=== PATIENT | female | born 1985 | race American Indian/Alaskan Native ===

== ENCOUNTER 2016-12-10 21:02 | Inpatient (IN) | payer MEDICAID, OTHER ==
[2016-12-10] MEDS ORDERED: ATIVAN ONE (21:19)
[2016-12-10] MEDS ORDERED: ATIVAN IV ONE (21:42)
[2016-12-10] MEDS ORDERED: KEPPRA 1,000 MG/NS 0.75% 100ML 1,000 MG/100 ML BAG IV ONE (21:42)
[2016-12-10 22:01] LABS: Basophils % (Auto) 0.3 % (0.0-1.8); Eosinophils % (Auto) 2.1 % (0.0-4.3); Hematocrit 34.1 % (30.3-42.9); Hemoglobin 11.3 gm/dl (10.1-14.3); Mean Corpuscular HGB Conc 33 % (30-34); Mean Corpuscular Hemoglobin 31 pg (28-32); Mean Corpuscular Volume 93 fl (79-97); Platelet Count 207 K/mm3 (140-440); Red Blood Count 3.69 M/mm3 (3.65-5.03); Red Cell Distribution Width 13.7 % (13.2-15.2); White Blood Count 4.1 K/mm3 (4.5-11.0)
[2016-12-10 22:05] LABS: Urine Drugs of Abuse Note Disclamer
--- NOTE | 2016-12-10 22:41 | Emergency Department Report ---
HPI - General Chief Complaint: Seizure Time Seen by Provider: 12/10/16 21:28 - HPI HPI: Room 25 The patient is a 31-year-old female presenting with a chief complaint of seizures. Patient had her first seizure of life 7 days ago. The patient went to [facility] ED where she had a CAT scan of the head and labs performed both which were negative. Patient was started on Keppra and states she's been compliant since. However the following day the patient continued to have seizures subsequently went to [place] ED where she was seen and released. Family states the patient is a seizure daily for the past 7 days, having approximately 4-5 episodes daily. Family reports patient had 5 seizures today the most recent lasted approximately 15 minutes and this prompted them to bring her to the ED. Patient currently denies complaints except for headache. 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, cor triatriatum dextrum) - Family History Family history: no significant - Social History Smoking Status: Never Smoker Substance Use Type: None - Medications Home Medications: Home Medications Medication Instructions Recorded Confirmed Last Taken Type Gabapentin [Neurontin] 300 mg PO QID 03/17/16 03/17/16 Unknown History Loratadine [Claritin] 10 mg PO DAILY 03/17/16 03/17/16 Unknown History Nortriptyline HCl 25 mg PO HS 03/17/16 03/17/16 Unknown History Pantoprazole [Protonix] 40 mg PO BID 03/17/16 03/17/16 Unknown History Cyclobenzaprine [Flexeril 10 MG 1 tab PO TID PRN #20 tablet 05/22/16 Unknown Rx TAB] HYDROcodone/APAP 5-325 [[place] 1 each PO Q6HR PRN #20 tablet 05/22/16 Unknown Rx 5/325] Sulfamethoxazole/Trimethoprim 1 each PO BID #20 tablet 05/22/16 Unknown Rx [Bactrim DS TAB] ED Review of Systems ROS: Stated complaint: SEIZURE Other details as noted in HPI Comment: All other systems reviewed and negative Constitutional: denies: chills, fever Eyes: denies: eye pain, eye discharge, vision change ENT: denies: ear pain, throat pain Respiratory: denies: cough, shortness of breath, wheezing Cardiovascular: denies: chest pain, palpitations Endocrine: no symptoms reported Gastrointestinal: denies: abdominal pain, nausea, diarrhea Genitourinary: denies: urgency, dysuria, discharge Musculoskeletal: denies: back pain, joint swelling, arthralgia Skin: denies: rash, lesions Neurological: other (seizure) Psychiatric: denies: anxiety, depression Hematological/Lymphatic: denies: easy bleeding, easy bruising Physical Exam - Physical Exam Vital Signs: Vital Signs 12/10/16 12/10/16 12/10/16 21:16 21:20 21:30 Temperature Pulse Rate 82 Respiratory 21 Rate Blood Pressure 98/64 106/67 Blood Pressure [Right] O2 Sat by Pulse 100 100 100 Oximetry 12/10/16 21:46 Temperature 98.5 F Pulse Rate 88 Respiratory 14 Rate Blood Pressure Blood Pressure 119/70 [Right] O2 Sat by Pulse 100 Oximetry Physical Exam: GENERAL: The patient is well-developed well-nourished []. [] HEENT: Normocephalic. Atraumatic. Extraocular motions are intact. Patient has moist mucous membranes. NECK: Supple. Trachea midline CHEST/LUNGS: Clear to auscultation. There is no respiratory distress noted. HEART/CARDIOVASCULAR: Regular. There is no tachycardia. There is no gallop rub or murmur. ABDOMEN: Abdomen is soft, nontender. Patient has normal bowel sounds. There is no abdominal distention. SKIN: There is no rash. There is no edema. There is no diaphoresis. NEURO: The patient is awake, alert, and oriented. The patient is cooperative. The patient has no focal neurologic deficits. The patient has normal speech. Cranial nerves II through XII grossly intact, no drift MUSCULOSKELETAL: There is no evidence of acute injury. ED Course Vital Signs 12/10/16 12/10/16 12/10/16 21:16 21:20 21:30 Temperature Pulse Rate 82 Respiratory 21 Rate Blood Pressure 98/64 106/67 Blood Pressure [Right] O2 Sat by Pulse 100 100 100 Oximetry 12/10/16 21:46 Temperature 98.5 F Pulse Rate 88 Respiratory 14 Rate Blood Pressure Blood Pressure 119/70 [Right] O2 Sat by Pulse 100 Oximetry ED Medical Decision Making - Lab Data Result diagrams: 12/10/16 21:44 12/10/16 21:44 Laboratory Tests 12/10/16 12/10/16 12/10/16 21:44 21:44 21:44 WBC 4.1 L RBC 3.69 Hgb 11.3 Hct 34.1 MCV 93 MCH 31 MCHC 33 RDW 13.7 Plt Count 207 Lymph % (Auto) 47.6 H [place] % (Auto) 9.3 H Eos % (Auto) 2.1 Baso % (Auto) 0.3 Lymph # 1.9 [place] # 0.4 Eos # 0.1 Baso # 0.0 Seg Neutrophils % 40.7 Seg Neutrophils # 1.7 L Sodium 143 Potassium 3.8 Chloride 109.5 H Carbon Dioxide 20 L Anion Gap 17 BUN 10 Creatinine 0.9 Estimated GFR > 60 BUN/Creatinine Ratio 11.11 Glucose 97 Calcium 8.9 Magnesium 2.00 Total Creatine Kinase 52 CK-MB (CK-2) < 1.0 CK-MB (CK-2) Rel Index 1.9 Troponin T < 0.010 TSH Free T4 Urine HCG, Qual Urine Opiates Screen Urine Methadone Screen Ur Barbiturates Screen Ur Phencyclidine Scrn Ur Amphetamines Screen U Benzodiazepines Scrn Urine Cocaine Screen U Marijuana (THC) Screen Drugs of Abuse Note 12/10/16 12/10/16 12/10/16 21:44 22:00 22:00 WBC RBC Hgb Hct MCV MCH MCHC RDW Plt Count Lymph % (Auto) [place] % (Auto) Eos % (Auto) Baso % (Auto) Lymph # [place] # Eos # Baso # Seg Neutrophils % Seg Neutrophils # Sodium Potassium Chloride Carbon Dioxide Anion Gap BUN Creatinine Estimated GFR BUN/Creatinine Ratio Glucose Calcium Magnesium Total Creatine Kinase CK-MB (CK-2) CK-MB (CK-2) Rel Index Troponin T TSH 3.890 Free T4 0.93 Urine HCG, Qual Negative Urine Opiates Screen Presumptive negative Urine Methadone Screen Presumptive negative Ur Barbiturates Screen Presumptive negative Ur Phencyclidine Scrn Presumptive negative Ur Amphetamines Screen Presumptive negative U Benzodiazepines Scrn Presumptive negative Urine Cocaine Screen Presumptive negative U Marijuana (THC) Screen Presumptive negative Drugs of Abuse Note Disclamer - Differential Diagnosis seizures Critical care attestation.: If time is entered above; I have spent that time in minutes in the direct care of this critically ill patient, excluding procedure time. ED Disposition Clinical Impression: Uncontrolled seizures Disposition: OP ADMIT IP TO THIS HOSP Is pt being admited?: Yes Does the pt Need Aspirin: Yes Condition: Fair Time of Disposition: 23:42 (hospitalist paged)
[2016-12-10 23:19] LABS: Creatine Kinase MB < 1.0 ng/mL (0.0-4.0)
[2016-12-10 23:22] LABS: Anion Gap 17 mmol/L; BUN/Creatinine Ratio 11.11; Blood Urea Nitrogen 10 mg/dL (7-17); Calcium 8.9 mg/dL (8.4-10.2); Carbon Dioxide 20 mmol/L (22-30); Chloride 109.5 mmol/L (98-107); Creatine Kinase 52 units/L (30-135); Glucose 97 mg/dL (65-100); Potassium 3.8 mmol/L (3.6-5.0); Sodium 143 mmol/L (137-145)
[2016-12-11] MEDS ORDERED: ZOFRAN IV PRN (00:56)
[2016-12-11] MEDS ORDERED: TYLENOL PR PRN (00:56)
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
[2016-12-11] MEDS: ATIVAN IV PRN ×3 (03:41→21:08)
[2016-12-11] MEDS: NACL 0.45% 1000 ML 1,000 ML IV SCH ×2 (04:19→22:28)
[2016-12-11] MEDS: LOVENOX SUB-Q SCH (09:51)
--- NOTE | 2016-12-11 11:25 | Event Note ---
Date: 12/11/16 Patient was admitted this morning for status epilepticus. Patient is on IV Keppra thousand milligrams IV twice a day. Patient is also on Ativan when necessary for breakthrough seizures. Patient had one episode of seizure this morning. Patient was drowsy but she is able to communicate. She has a recent admission to [facility] for seizures and shows discharge his medications. Neurology consult is placed.
[2016-12-11] MEDS: KEPPRA 1,000 MG in D5W 100 ML IV SCH ×2 (14:08→21:39)
[2016-12-11] MEDS: TYLENOL PO PRN (14:22)
[2016-12-11] MEDS: PROTONIX PO SCH ×2 (14:23→21:46)
[2016-12-11] MEDS: NEURONTIN PO SCH ×4 (14:23→21:45)
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
--- NOTE | 2016-12-12 01:57 | Admit Criteria Form ---
Admission Criteria Documentation: SEIZURE Clinical Indications for Admission to Inpatient Care (Place 'X' for any and all applicable criteria): Admission is indicated for seizure and ANY ONE of the following(1)(2)(3)(4)(5): [ ]I. Inpatient admission required rather than observation care (Also use Seizure: Observation Care Criteria as appropriate) because of ANY ONE of the following: [ ]a) Altered mental status that is severe or persistent [ ]b) New focal neurologic deficit that is severe or persistent [ ]c) Metabolic disorder (eg, hypoglycemia, hyponatremia) that is severe or persistent [ ]d) Recurrent seizure [ ]e) Outpatient antiseizure regimen cannot be established (eg , patient cannot tolerate medication, initiation requires inpatient care) [ ]f) Need for ongoing intravenous infusion of antiseizure medication [ ]g) Cardiac arrhythmias of immediate concern [ ]h) Cerebral bleeding, hydrocephalus, or vasospasm monitoring (14) [ ]i) Increased intracranial pressure or cerebral edema monitoring (15) [ ]j) Other treatment or monitoring requiring inpatient admission [X ]II. Status epilepticus [A] or repetitive seizures not controlled with emergent treatment (6)(8) [ ]III. Brain disorder (eg, tumor, edema, and hydrocephalus) that requiring monitoring or intervention available only at inpatient level of care. [ ]IV. Brain insult (eg, severe trauma, stroke, drug toxicity, or withdrawal) that requires monitoring or intervention available only at inpatient level of care (10)(11) Extended stay beyond goal length of stay may be needed for (22) [ ]a) Complications of status epilepticus [ ]b) Refractory status epilepticus [ ]c) Etiology-specific therapy for conditions such as RECEPTION AGENT infection, head injury,eclampsia, severe metabolic abnormalities, and brain tumor [ ]d) Residual neurologic damage, [ ]e) Initiation of significant change to anticonvulsant treatment [ ]f) Older patients (65 years or older) [ ]g) Patient requiring intubation (eg, to protect airway) The original [employer] content created by [employer] has been revised. The portions of the content which have been revised are identified through the use of italic text or in bold, and [facility] has neither reviewed nor approved the modified material. All other unmodified content is copyright [facility]. Please see references footnoted in the original [facility] edition 2016 Admission Criteria Met: Yes
[2016-12-12 08:09] LABS: Basophils % (Auto) 0.4 % (0.0-1.8); Eosinophils % (Auto) 1.3 % (0.0-4.3); Hematocrit 31.2 % (30.3-42.9); Hemoglobin 10.4 gm/dl (10.1-14.3); Mean Corpuscular HGB Conc 33 % (30-34); Mean Corpuscular Hemoglobin 31 pg (28-32); Mean Corpuscular Volume 92 fl (79-97); Platelet Count 186 K/mm3 (140-440); Red Blood Count 3.38 M/mm3 (3.65-5.03); Red Cell Distribution Width 13.7 % (13.2-15.2); White Blood Count 3.7 K/mm3 (4.5-11.0)
[2016-12-12 08:13] LABS: Anion Gap 18 mmol/L; Blood Urea Nitrogen 6 mg/dL (7-17); Calcium 8.6 mg/dL (8.4-10.2); Carbon Dioxide 16 mmol/L (22-30); Chloride 109.7 mmol/L (98-107); Glucose 84 mg/dL (65-100); Potassium 3.5 mmol/L (3.6-5.0); Sodium 140 mmol/L (137-145)
[2016-12-12] MEDS: LOVENOX SUB-Q SCH (10:43)
[2016-12-12] MEDS: NEURONTIN PO SCH ×4 (10:44→22:40)
[2016-12-12] MEDS: PROTONIX PO SCH ×2 (10:44→22:40)
[2016-12-12] MEDS: KEPPRA 1,000 MG in D5W 100 ML IV SCH (12:07)
--- NOTE | 2016-12-12 13:36 | Progress Note ---
Assessment and Plan Assessment and plan: Status epilepticus - Patient is on Keppra and Ativan for breakthrough seizure - Gabapentin - Had one episode of seizure last night - Neurology consulted and recommended EEG, no recommendation about medication DVT prophylaxis - Lovenox Disposition - We will be discharge after EEG done and interpreted. History Interval history: Patient was seen and evaluated morning, patient said she had episode of seizure last night. Patient was seen by neurologist recommended EEG. Hospitalist Physical - Physical exam Narrative exam: Not in cardiopulmonary distress. The patient appeared well nourished and normally developed. Vital signs as documented. Head exam is unremarkable. No scleral icterus . Neck is without jugular venous distension, thyromegaly, or carotid bruits. Lungs are clear to auscultation. Cardiac exam reveals regular rate and Rhythm. First and second heart sounds normal. No murmurs, rubs or gallops. Abdominal exam reveals normal bowel sounds, no masses, no organomegaly and no aortic enlargement. Extremities are nonedematous and both femoral and pedal pulses are normal. PHOTOLITHOGRAPHER: Alert and oriented 3. No focal weakness. - Constitutional Vitals: Temp Pulse Resp BP Pulse Ox 98.1 F 60 16 94/52 98 12/12/16 08:00 12/12/16 08:00 12/12/16 08:00 12/12/16 08:00 12/12/16 08:00 Results - Labs CBC & Chem 7: 12/12/16 07:31 12/12/16 07:31 Labs: Laboratory Last Values WBC 3.7 K/mm3 (4.5-11.0) L 12/12/16 07:31 RBC 3.38 M/mm3 (3.65-5.03) L 12/12/16 07:31 Hgb 10.4 gm/dl (10.1-14.3) 12/12/16 07:31 Hct 31.2 % (30.3-42.9) 12/12/16 07:31 MCV 92 fl (79-97) 12/12/16 07:31 MCH 31 pg (28-32) 12/12/16 07:31 MCHC 33 % (30-34) 12/12/16 07:31 RDW 13.7 % (13.2-15.2) 12/12/16 07:31 Plt Count 186 K/mm3 (140-440) 12/12/16 07:31 Lymph % (Auto) 35.9 % (13.4-35.0) H 12/12/16 07:31 [place] % (Auto) 8.1 % (0.0-7.3) H 12/12/16 07:31 Eos % (Auto) 1.3 % (0.0-4.3) 12/12/16 07:31 Baso % (Auto) 0.4 % (0.0-1.8) 12/12/16 07:31 Lymph # 1.3 K/mm3 (1.2-5.4) 12/12/16 07:31 [place] # 0.3 K/mm3 (0.0-0.8) 12/12/16 07:31 Eos # 0.0 K/mm3 (0.0-0.4) 12/12/16 07:31 Baso # 0.0 K/mm3 (0.0-0.1) 12/12/16 07:31 Seg Neutrophils % 54.3 % (40.0-70.0) 12/12/16 07:31 Seg Neutrophils # 2.0 K/mm3 (1.8-7.7) 12/12/16 07:31 Sodium 140 mmol/L (137-145) 12/12/16 07:31 Potassium 3.5 mmol/L (3.6-5.0) L 12/12/16 07:31 Chloride 109.7 mmol/L (98-107) H 12/12/16 07:31 Carbon Dioxide 16 mmol/L (22-30) L 12/12/16 07:31 Anion Gap 18 mmol/L 12/12/16 07:31 BUN 6 mg/dL (7-17) L 12/12/16 07:31 Creatinine 0.8 mg/dL (0.7-1.2) 12/12/16 07:31 Estimated GFR > 60 ml/min 12/12/16 07:31 BUN/Creatinine Ratio 7.50 % 12/12/16 07:31 Glucose 84 mg/dL (65-100) 12/12/16 07:31 Calcium 8.6 mg/dL (8.4-10.2) 12/12/16 07:31 Magnesium 2.00 mg/dL (1.7-2.3) 12/10/16 21:44 Total Creatine Kinase 52 units/L (30-135) 12/10/16 21:44 CK-MB (CK-2) < 1.0 ng/mL (0.0-4.0) 12/10/16 21:44 CK-MB (CK-2) Rel Index 1.9 (0-4) 12/10/16 21:44 Troponin T < 0.010 ng/mL (0.00-0.029) 12/10/16 21:44 TSH 3.890 mlU/mL (0.270-4.200) 12/10/16 21:44 Free T4 0.93 ng/dL (0.76-1.46) 12/10/16 21:44 Urine HCG, Qual Negative (Negative) 12/10/16 22:00 Urine Opiates Screen Presumptive negative 12/10/16 22:00 Urine Methadone Screen Presumptive negative 12/10/16 22:00 Ur Barbiturates Screen Presumptive negative 12/10/16 22:00 Ur Phencyclidine Scrn Presumptive negative 12/10/16 22:00 Ur Amphetamines Screen Presumptive negative 12/10/16 22:00 U Benzodiazepines Scrn Presumptive negative 12/10/16 22:00 Urine Cocaine Screen Presumptive negative 12/10/16 22:00 U Marijuana (THC) Screen Presumptive negative 12/10/16 22:00 Drugs of Abuse Note Disclamer 12/10/16 22:00
[2016-12-12] MEDS: NACL 0.45% 1000 ML 1,000 ML IV SCH (13:59)
[2016-12-12] MEDS: KEPPRA PO SCH ×2 (15:39→22:40)
[2016-12-12] MEDS: ATIVAN IV PRN (19:49)
[2016-12-13 05:14] LABS: Anion Gap 14 mmol/L; BUN/Creatinine Ratio 5.71; Blood Urea Nitrogen 4 mg/dL (7-17); Calcium 6.4 mg/dL (8.4-10.2); Carbon Dioxide 15 mmol/L (22-30); Chloride 101.7 mmol/L (98-107); Glucose 70 mg/dL (65-100)
[2016-12-13 05:39] LABS: Sodium 128 mmol/L (137-145)
[2016-12-13] MEDS: TYLENOL PO PRN (05:41)
[2016-12-13] MEDS: NACL 0.45% 1000 ML 1,000 ML IV SCH ×2 (05:41→22:30)
[2016-12-13] MEDS: ATIVAN IV PRN ×3 (09:32→21:05)
[2016-12-13] MEDS: LOVENOX SUB-Q SCH (09:38)
[2016-12-13] MEDS ORDERED: LaMICtal PO SCH (10:00)
[2016-12-13] MEDS: TOPAMAX PO SCH ×2 (10:09→22:24)
[2016-12-13] MEDS: NEURONTIN PO SCH ×4 (10:09→22:24)
[2016-12-13] MEDS: KEPPRA PO SCH ×2 (10:10→22:22)
[2016-12-13] MEDS: PROTONIX PO SCH ×2 (10:10→22:25)
[2016-12-13] MEDS: NACL 0.9% 1000 ML 1,000 ML IV SCH (10:13)
[2016-12-13] MEDS ORDERED: K-DUR PO ONE (14:04)
--- NOTE | 2016-12-13 14:06 | Progress Note ---
Assessment and Plan Assessment and plan: Status epilepticus - Patient is on Gabapentin, Keppra, lamictal and Ativan for breakthrough seizure - Had one episode of seizure this morning - Neurology consulted and recommended EEG, no recommendation about medication Migraine - continue topiramate DVT prophylaxis - Lovenox Disposition - We will be discharge after EEG done and interpreted and neurology put a recommendation about discharge medication plan. History Interval history: Patient was seen and evaluated morning, patient said she had episode of seizure this morning. Patient was seen by neurologist recommended EEG. Hospitalist Physical - Physical exam Narrative exam: Not in cardiopulmonary distress. The patient appeared well nourished and normally developed. Vital signs as documented. Head exam is unremarkable. No scleral icterus . Neck is without jugular venous distension, thyromegaly, or carotid bruits. Lungs are clear to auscultation. Cardiac exam reveals regular rate and Rhythm. First and second heart sounds normal. No murmurs, rubs or gallops. Abdominal exam reveals normal bowel sounds, no masses, no organomegaly and no aortic enlargement. Extremities are nonedematous and both femoral and pedal pulses are normal. LIQUEFIER: Alert and oriented 3. No focal weakness. - Constitutional Vitals: Temp Pulse Resp BP Pulse Ox 98.2 F 68 16 96/52 98 12/13/16 08:03 12/13/16 08:03 12/13/16 08:03 12/13/16 08:03 12/13/16 08:03 Results - Labs CBC & Chem 7: 12/12/16 07:31 12/13/16 02:55 Labs: Laboratory Last Values WBC 3.7 K/mm3 (4.5-11.0) L 12/12/16 07:31 RBC 3.38 M/mm3 (3.65-5.03) L 12/12/16 07:31 Hgb 10.4 gm/dl (10.1-14.3) 12/12/16 07:31 Hct 31.2 % (30.3-42.9) 12/12/16 07:31 MCV 92 fl (79-97) 12/12/16 07:31 MCH 31 pg (28-32) 12/12/16 07:31 MCHC 33 % (30-34) 12/12/16 07:31 RDW 13.7 % (13.2-15.2) 12/12/16 07:31 Plt Count 186 K/mm3 (140-440) 12/12/16 07:31 Lymph % (Auto) 35.9 % (13.4-35.0) H 12/12/16 07:31 [place] % (Auto) 8.1 % (0.0-7.3) H 12/12/16 07:31 Eos % (Auto) 1.3 % (0.0-4.3) 12/12/16 07:31 Baso % (Auto) 0.4 % (0.0-1.8) 12/12/16 07:31 Lymph # 1.3 K/mm3 (1.2-5.4) 12/12/16 07:31 [place] # 0.3 K/mm3 (0.0-0.8) 12/12/16 07:31 Eos # 0.0 K/mm3 (0.0-0.4) 12/12/16 07:31 Baso # 0.0 K/mm3 (0.0-0.1) 12/12/16 07:31 Seg Neutrophils % 54.3 % (40.0-70.0) 12/12/16 07:31 Seg Neutrophils # 2.0 K/mm3 (1.8-7.7) 12/12/16 07:31 Sodium 128 mmol/L (137-145) L D 12/13/16 02:55 Potassium 3.0 mmol/L (3.6-5.0) L 12/13/16 02:55 Chloride 101.7 mmol/L (98-107) 12/13/16 02:55 Carbon Dioxide 15 mmol/L (22-30) L 12/13/16 02:55 Anion Gap 14 mmol/L 12/13/16 02:55 BUN 4 mg/dL (7-17) L 12/13/16 02:55 Creatinine 0.7 mg/dL (0.7-1.2) 12/13/16 02:55 Estimated GFR > 60 ml/min 12/13/16 02:55 BUN/Creatinine Ratio 5.71 % 12/13/16 02:55 Glucose 70 mg/dL (65-100) 12/13/16 02:55 Calcium 6.4 mg/dL (8.4-10.2) L D 12/13/16 02:55 Magnesium 2.00 mg/dL (1.7-2.3) 12/10/16 21:44 Total Creatine Kinase 52 units/L (30-135) 12/10/16 21:44 CK-MB (CK-2) < 1.0 ng/mL (0.0-4.0) 12/10/16 21:44 CK-MB (CK-2) Rel Index 1.9 (0-4) 12/10/16 21:44 Troponin T < 0.010 ng/mL (0.00-0.029) 12/10/16 21:44 TSH 3.890 mlU/mL (0.270-4.200) 12/10/16 21:44 Free T4 0.93 ng/dL (0.76-1.46) 12/10/16 21:44 Urine HCG, Qual Negative (Negative) 12/10/16 22:00 Urine Opiates Screen Presumptive negative 12/10/16 22:00 Urine Methadone Screen Presumptive negative 12/10/16 22:00 Ur Barbiturates Screen Presumptive negative 12/10/16 22:00 Ur Phencyclidine Scrn Presumptive negative 12/10/16 22:00 Ur Amphetamines Screen Presumptive negative 12/10/16 22:00 U Benzodiazepines Scrn Presumptive negative 12/10/16 22:00 Urine Cocaine Screen Presumptive negative 12/10/16 22:00 U Marijuana (THC) Screen Presumptive negative 12/10/16 22:00 Drugs of Abuse Note Disclamer 12/10/16 22:00
[2016-12-13] MEDS: LaMICtal PO SCH (22:23)
[2016-12-14 06:38] LABS: Anion Gap 16 mmol/L; BUN/Creatinine Ratio 4.28; Blood Urea Nitrogen 3 mg/dL (7-17); Carbon Dioxide 17 mmol/L (22-30); Chloride 111.8 mmol/L (98-107); Glucose 83 mg/dL (65-100); Sodium 141 mmol/L (137-145)
[2016-12-14] MEDS: NACL 0.9% 1000 ML 1,000 ML IV SCH ×2 (07:01→19:52)
[2016-12-14 07:46] LABS: Calcium 8.3 mg/dL (8.4-10.2)
[2016-12-14] MEDS: KEPPRA PO SCH ×2 (09:12→21:21)
[2016-12-14] MEDS: ATIVAN IV PRN ×3 (09:28→20:56)
[2016-12-14] MEDS: PROTONIX PO SCH ×2 (09:39→21:21)
[2016-12-14] MEDS: NEURONTIN PO SCH ×4 (09:39→21:21)
[2016-12-14] MEDS: TOPAMAX PO SCH ×2 (09:40→21:21)
[2016-12-14] MEDS: LaMICtal PO SCH ×2 (10:47→21:20)
[2016-12-14] MEDS: LOVENOX SUB-Q SCH (10:48)
--- NOTE | 2016-12-14 16:37 | Progress Note ---
Assessment and Plan Assessment and plan: Status epilepticus - Patient is on Gabapentin, Keppra, lamictal and Ativan for breakthrough seizure - Had one episode of seizure last night, didn't have seizure today - Neurology consulted and recommended EEG, and increased lamictal to 200mg Migraine - continue topiramate DVT prophylaxis - Lovenox Disposition - We will be discharge after EEG done and interpreted and neurology. History Interval history: Patient was seen and evaluated morning, patient said she had episode of seizure last night. Patient was seen by neurologist recommended EEG. Hospitalist Physical - Physical exam Narrative exam: Not in cardiopulmonary distress. The patient appeared well nourished and normally developed. Vital signs as documented. Head exam is unremarkable. No scleral icterus . Neck is without jugular venous distension, thyromegaly, or carotid bruits. Lungs are clear to auscultation. Cardiac exam reveals regular rate and Rhythm. First and second heart sounds normal. No murmurs, rubs or gallops. Abdominal exam reveals normal bowel sounds, no masses, no organomegaly and no aortic enlargement. Extremities are nonedematous and both femoral and pedal pulses are normal. 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 No focal weakness. - Constitutional Vitals: Temp Pulse Resp BP Pulse Ox 98.0 F 61 16 100/65 100 12/14/16 07:34 12/14/16 07:34 12/14/16 07:34 12/14/16 07:34 12/14/16 07:34 Results - Labs CBC & Chem 7: 12/12/16 07:31 12/14/16 05:26 Labs: Laboratory Last Values WBC 3.7 K/mm3 (4.5-11.0) L 12/12/16 07:31 RBC 3.38 M/mm3 (3.65-5.03) L 12/12/16 07:31 Hgb 10.4 gm/dl (10.1-14.3) 12/12/16 07:31 Hct 31.2 % (30.3-42.9) 12/12/16 07:31 MCV 92 fl (79-97) 12/12/16 07:31 MCH 31 pg (28-32) 12/12/16 07:31 MCHC 33 % (30-34) 12/12/16 07:31 RDW 13.7 % (13.2-15.2) 12/12/16 07:31 Plt Count 186 K/mm3 (140-440) 12/12/16 07:31 Lymph % (Auto) 35.9 % (13.4-35.0) H 12/12/16 07:31 Clinch % (Auto) 8.1 % (0.0-7.3) H 12/12/16 07:31 Eos % (Auto) 1.3 % (0.0-4.3) 12/12/16 07:31 Baso % (Auto) 0.4 % (0.0-1.8) 12/12/16 07:31 Lymph # 1.3 K/mm3 (1.2-5.4) 12/12/16 07:31 Clinch # 0.3 K/mm3 (0.0-0.8) 12/12/16 07:31 Eos # 0.0 K/mm3 (0.0-0.4) 12/12/16 07:31 Baso # 0.0 K/mm3 (0.0-0.1) 12/12/16 07:31 Seg Neutrophils % 54.3 % (40.0-70.0) 12/12/16 07:31 Seg Neutrophils # 2.0 K/mm3 (1.8-7.7) 12/12/16 07:31 Sodium 141 mmol/L (137-145) D 12/14/16 05:26 Potassium 4.0 mmol/L (3.6-5.0) D 12/14/16 05:26 Chloride 111.8 mmol/L (98-107) H 12/14/16 05:26 Carbon Dioxide 17 mmol/L (22-30) L 12/14/16 05:26 Anion Gap 16 mmol/L 12/14/16 05:26 BUN 3 mg/dL (7-17) L 12/14/16 05:26 Creatinine 0.7 mg/dL (0.7-1.2) 12/14/16 05:26 Estimated GFR > 60 ml/min 12/14/16 05:26 BUN/Creatinine Ratio 4.28 % 12/14/16 05:26 Glucose 83 mg/dL (65-100) 12/14/16 05:26 Calcium 8.3 mg/dL (8.4-10.2) L D 12/14/16 05:26 Magnesium 2.00 mg/dL (1.7-2.3) 12/10/16 21:44 Total Creatine Kinase 52 units/L (30-135) 12/10/16 21:44 CK-MB (CK-2) < 1.0 ng/mL (0.0-4.0) 12/10/16 21:44 CK-MB (CK-2) Rel Index 1.9 (0-4) 12/10/16 21:44 Troponin T < 0.010 ng/mL (0.00-0.029) 12/10/16 21:44 TSH 3.890 mlU/mL (0.270-4.200) 12/10/16 21:44 Free T4 0.93 ng/dL (0.76-1.46) 12/10/16 21:44 Urine HCG, Qual Negative (Negative) 12/10/16 22:00 Urine Opiates Screen Presumptive negative 12/10/16 22:00 Urine Methadone Screen Presumptive negative 12/10/16 22:00 Ur Barbiturates Screen Presumptive negative 12/10/16 22:00 Ur Phencyclidine Scrn Presumptive negative 12/10/16 22:00 Ur Amphetamines Screen Presumptive negative 12/10/16 22:00 U Benzodiazepines Scrn Presumptive negative 12/10/16 22:00 Urine Cocaine Screen Presumptive negative 12/10/16 22:00 U Marijuana (THC) Screen Presumptive negative 12/10/16 22:00 Drugs of Abuse Note Disclamer 12/10/16 22:00
[2016-12-14] MEDS: TYLENOL PO PRN (17:09)
[2016-12-15] MEDS: NACL 0.9% 1000 ML 1,000 ML IV SCH ×3 (04:00→21:17)
[2016-12-15 05:53] LABS: Basophils % (Auto) 0.3 % (0.0-1.8); Eosinophils % (Auto) 2.2 % (0.0-4.3); Hematocrit 28.2 % (30.3-42.9); Hemoglobin 9.4 gm/dl (10.1-14.3); Mean Corpuscular HGB Conc 33 % (30-34); Mean Corpuscular Hemoglobin 30 pg (28-32); Mean Corpuscular Volume 91 fl (79-97); Platelet Count 159 K/mm3 (140-440); Red Blood Count 3.11 M/mm3 (3.65-5.03); Red Cell Distribution Width 13.5 % (13.2-15.2); White Blood Count 3.4 K/mm3 (4.5-11.0)
[2016-12-15 06:08] LABS: Anion Gap 13 mmol/L; BUN/Creatinine Ratio 4.28; Blood Urea Nitrogen 3 mg/dL (7-17); Calcium 8.2 mg/dL (8.4-10.2); Carbon Dioxide 19 mmol/L (22-30); Chloride 111.9 mmol/L (98-107); Glucose 85 mg/dL (65-100); Potassium 3.5 mmol/L (3.6-5.0); Sodium 140 mmol/L (137-145)
[2016-12-15] MEDS: ATIVAN IV PRN ×3 (08:45→18:34)
[2016-12-15] MEDS: LOVENOX SUB-Q SCH (09:44)
[2016-12-15] MEDS: NEURONTIN PO SCH ×4 (09:45→21:21)
[2016-12-15] MEDS: TOPAMAX PO SCH ×2 (09:45→21:21)
[2016-12-15] MEDS: KEPPRA PO SCH ×2 (09:45→21:20)
[2016-12-15] MEDS: LaMICtal PO SCH ×2 (09:45→21:19)
[2016-12-15] MEDS: PROTONIX PO SCH ×2 (10:00→21:20)
[2016-12-15] MEDS ORDERED: ATIVAN IV STA (10:30)
--- NOTE | 2016-12-15 10:59 | Consultation ---
History of Present Illness - Reason for Consult Consult date: 12/15/16 seizure - History of Present Illness spoke to the hospitalist and the Keppra dose is adequate at 2000 m g / day and lamictal raised to 400 mg/ day and Neurontin 1200 mg / day in combo these meds should be very effective I would recommend transfer to epilepsy monitoring unit at [place] SHE IS FOLLOWED IN THE NEUROLOGY CLINIC HOSPITALIST IS HERE ON THE FLOOR AND THIS WAS ADVISED CLINICAL HANDOFF Medications and Allergies Allergies Allergy/AdvReac Type Severity Reaction Status Date / Time Iodinated Contrast Media - Allergy Nausea Verified 04/25/15 11:02 IV Dye magnesium Allergy Anaphylaxis Verified 04/25/15 11:03 Home Medications Medication Instructions Recorded Confirmed Last Taken Type Gabapentin [Neurontin] 300 mg PO QID 03/17/16 03/17/16 Unknown History Loratadine [Claritin] 10 mg PO DAILY 03/17/16 03/17/16 Unknown History Nortriptyline HCl 25 mg PO HS 03/17/16 03/17/16 Unknown History Pantoprazole [Protonix] 40 mg PO BID 03/17/16 03/17/16 Unknown History Cyclobenzaprine [Flexeril 10 MG 1 tab PO TID PRN #20 tablet 05/22/16 Unknown Rx TAB] HYDROcodone/APAP 5-325 [Johnson 1 each PO Q6HR PRN #20 tablet 05/22/16 Unknown Rx 5/325] Sulfamethoxazole/Trimethoprim 1 each PO BID #20 tablet 05/22/16 Unknown Rx [Bactrim DS TAB] Active Meds: Active Medications Acetaminophen (Tylenol) 650 mg PO Q4H PRN PRN Reason: Pain MILD(1-3)/Fever >100.5/VALLEJO Last Admin: 12/14/16 17:09 Dose: 650 mg Acetaminophen (Tylenol) 650 mg [place] Q4H PRN PRN Reason: Pain MILD(1-3)/Fever >100.5/VALLEJO Enoxaparin Sodium (Lovenox) 40 mg SUB-Q QDAY [facility] Last Admin: 12/15/16 09:44 Dose: 40 mg Gabapentin (Neurontin) 300 mg PO QID [facility] Last Admin: 12/15/16 09:45 Dose: 300 mg Sodium Chloride (Nacl 0.45% 1000 Ml) 1,000 mls @ 75 mls/hr IV DIRECT [facility] Last Admin: 12/13/16 22:30 Dose: 75 mls/hr Sodium Chloride (Nacl 0.9% 1000 Ml) 1,000 mls @ 125 mls/hr IV DIRECT [facility] Last Admin: 12/15/16 10:45 Dose: 125 mls/hr Lamotrigine (Lamictal) 200 mg PO BID [facility] Last Admin: 12/15/16 09:45 Dose: 200 mg Levetiracetam (Keppra) 1,000 mg PO BID [facility] Last Admin: 12/15/16 09:45 Dose: 1,000 mg Lorazepam (Ativan) 1 mg IV Q4H PRN PRN Reason: Seizures Last Admin: 12/15/16 08:45 Dose: 1 mg Ondansetron HCl (Zofran) 4 mg IV Q8H PRN PRN Reason: N/V unrelieved by Reglan Pantoprazole Sodium (Protonix) 40 mg PO BID [facility] Last Admin: 12/15/16 10:00 Dose: 40 mg Topiramate (Topamax) 50 mg PO Q12HR [facility] Last Admin: 12/15/16 09:45 Dose: 50 mg Exam - Constitutional Vitals: Temp Pulse Resp BP Pulse Ox 97.9 F 96 H 24 122/73 100 12/15/16 10:00 12/15/16 10:00 12/15/16 10:00 12/15/16 10:00 12/15/16 10:00 Results - Labs CBC & Chem 7: 12/15/16 05:07 12/15/16 05:07 Labs: Abnormal lab results 12/15/16 12/15/16 Range/Units 05:07 05:07 WBC 3.4 L (4.5-11.0) K/mm3 RBC 3.11 L (3.65-5.03) M/mm3 Hgb 9.4 L (10.1-14.3) gm/dl Hct 28.2 L (30.3-42.9) % Lymph % (Auto) 36.3 H (13.4-35.0) % [place] % (Auto) 8.8 H (0.0-7.3) % Potassium 3.5 L (3.6-5.0) mmol/L Chloride 111.9 H (98-107) mmol/L Carbon Dioxide 19 L (22-30) mmol/L BUN 3 L (7-17) mg/dL Calcium 8.2 L (8.4-10.2) mg/dL
--- NOTE | 2016-12-15 11:25 | Consultation ---
History of Present Illness - Reason for Consult Consult date: 12/15/16 eeg report - History of Present Illness I reviewed the EEG in it's entirity and I would call it normal Medications and Allergies Allergies Allergy/AdvReac Type Severity Reaction Status Date / Time Iodinated Contrast Media - Allergy Nausea Verified 04/25/15 11:02 IV Dye magnesium Allergy Anaphylaxis Verified 04/25/15 11:03 Home Medications Medication Instructions Recorded Confirmed Last Taken Type Gabapentin [Neurontin] 300 mg PO QID 03/17/16 03/17/16 Unknown History Loratadine [Claritin] 10 mg PO DAILY 03/17/16 03/17/16 Unknown History Nortriptyline HCl 25 mg PO HS 03/17/16 03/17/16 Unknown History Pantoprazole [Protonix] 40 mg PO BID 03/17/16 03/17/16 Unknown History Cyclobenzaprine [Flexeril 10 MG 1 tab PO TID PRN #20 tablet 05/22/16 Unknown Rx TAB] HYDROcodone/APAP 5-325 [Fowler 1 each PO Q6HR PRN #20 tablet 05/22/16 Unknown Rx 5/325] Sulfamethoxazole/Trimethoprim 1 each PO BID #20 tablet 05/22/16 Unknown Rx [Bactrim DS TAB] Active Meds: Active Medications Acetaminophen (Tylenol) 650 mg PO Q4H PRN PRN Reason: Pain MILD(1-3)/Fever >100.5/VALLEJO Last Admin: 12/14/16 17:09 Dose: 650 mg Acetaminophen (Tylenol) 650 mg [place] Q4H PRN PRN Reason: Pain MILD(1-3)/Fever >100.5/VALLEJO Enoxaparin Sodium (Lovenox) 40 mg SUB-Q QDAY [facility] Last Admin: 12/15/16 09:44 Dose: 40 mg Gabapentin (Neurontin) 300 mg PO QID [facility] Last Admin: 12/15/16 09:45 Dose: 300 mg Sodium Chloride (Nacl 0.45% 1000 Ml) 1,000 mls @ 75 mls/hr IV DIRECT [facility] Last Admin: 12/13/16 22:30 Dose: 75 mls/hr Sodium Chloride (Nacl 0.9% 1000 Ml) 1,000 mls @ 125 mls/hr IV DIRECT [facility] Last Admin: 12/15/16 10:45 Dose: 125 mls/hr Lamotrigine (Lamictal) 200 mg PO BID [facility] Last Admin: 12/15/16 09:45 Dose: 200 mg Levetiracetam (Keppra) 1,000 mg PO BID [facility] Last Admin: 12/15/16 09:45 Dose: 1,000 mg Lorazepam (Ativan) 1 mg IV Q4H PRN PRN Reason: Seizures Last Admin: 12/15/16 08:45 Dose: 1 mg Ondansetron HCl (Zofran) 4 mg IV Q8H PRN PRN Reason: N/V unrelieved by Reglan Pantoprazole Sodium (Protonix) 40 mg PO BID [facility] Last Admin: 12/15/16 10:00 Dose: 40 mg Topiramate (Topamax) 50 mg PO Q12HR [facility] Last Admin: 12/15/16 09:45 Dose: 50 mg Exam - Constitutional Vitals: Temp Pulse Resp BP Pulse Ox 97.9 F 96 H 24 122/73 100 12/15/16 10:00 12/15/16 10:00 12/15/16 10:00 12/15/16 10:00 12/15/16 10:00 Results - Labs CBC & Chem 7: 12/15/16 05:07 12/15/16 05:07 Labs: Abnormal lab results 12/15/16 12/15/16 Range/Units 05:07 05:07 WBC 3.4 L (4.5-11.0) K/mm3 RBC 3.11 L (3.65-5.03) M/mm3 Hgb 9.4 L (10.1-14.3) gm/dl Hct 28.2 L (30.3-42.9) % Lymph % (Auto) 36.3 H (13.4-35.0) % [place] % (Auto) 8.8 H (0.0-7.3) % Potassium 3.5 L (3.6-5.0) mmol/L Chloride 111.9 H (98-107) mmol/L Carbon Dioxide 19 L (22-30) mmol/L BUN 3 L (7-17) mg/dL Calcium 8.2 L (8.4-10.2) mg/dL
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
[2016-12-15] MEDS: TYLENOL PO PRN (14:52)
[2016-12-16] MEDS: NACL 0.9% 1000 ML 1,000 ML IV SCH ×2 (05:06→22:54)
--- NOTE | 2016-12-16 08:11 | Event Note ---
Date: 12/16/16 Assessment and Plan Assessment and plan: Status epilepticus Recurrent seizures - Patient is on Gabapentin, Keppra, lamictal and Ativan for breakthrough seizure - Had 2 episodes of seizures this morning - Neurology consulted and EEG was done and read as normal Migraine - continue topiramate DVT prophylaxis - Lovenox Disposition - Patient transferred to [place] to epilepsy monitoring Unit and waiting for bed. - Patient Problems (1) Migraine Current Visit: Yes Status: Acute Qualifiers: Migraine type: M Status migrainosus presence: S Intractability: I (2) Uncontrolled seizures Current Visit: Yes Status: Acute Qualifiers: Convulsion type: C History Interval history: Patient was seen and evaluated morning, patient said she had 2episode of seizure this morning. Patient was seen by neurologist recommended EEG read as normal. Hospitalist Physical - Physical exam Narrative exam: Not in cardiopulmonary distress. The patient appeared well nourished and normally developed. Vital signs as documented. Head exam is unremarkable. No scleral icterus . Neck is without jugular venous distension, thyromegaly, or carotid bruits. Lungs are clear to auscultation. Cardiac exam reveals regular rate and Rhythm. First and second heart sounds normal. No murmurs, rubs or gallops. Abdominal exam reveals normal bowel sounds, no masses, no organomegaly and no aortic enlargement. Extremities are nonedematous and both femoral and pedal pulses are normal. 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 No focal weakness. - Constitutional Vitals: Temp Pulse Resp BP Pulse Ox 98.5 F 63 20 90/50 93 12/15/16 23:30 12/15/16 23:30 12/15/16 23:30 12/15/16 23:30 12/15/16 23:30 Results - Labs CBC & Chem 7: 12/15/16 05:07 12/15/16 05:07 Labs: Laboratory Last Values WBC 3.4 K/mm3 (4.5-11.0) L 12/15/16 05:07 RBC 3.11 M/mm3 (3.65-5.03) L 12/15/16 05:07 Hgb 9.4 gm/dl (10.1-14.3) L 12/15/16 05:07 Hct 28.2 % (30.3-42.9) L 12/15/16 05:07 MCV 91 fl (79-97) 12/15/16 05:07 MCH 30 pg (28-32) 12/15/16 05:07 MCHC 33 % (30-34) 12/15/16 05:07 RDW 13.5 % (13.2-15.2) 12/15/16 05:07 Plt Count 159 K/mm3 (140-440) 12/15/16 05:07 Lymph % (Auto) 36.3 % (13.4-35.0) H 12/15/16 05:07 [place] % (Auto) 8.8 % (0.0-7.3) H 12/15/16 05:07 Eos % (Auto) 2.2 % (0.0-4.3) 12/15/16 05:07 Baso % (Auto) 0.3 % (0.0-1.8) 12/15/16 05:07 Lymph # 1.2 K/mm3 (1.2-5.4) 12/15/16 05:07 [place] # 0.3 K/mm3 (0.0-0.8) 12/15/16 05:07 Eos # 0.1 K/mm3 (0.0-0.4) 12/15/16 05:07 Baso # 0.0 K/mm3 (0.0-0.1) 12/15/16 05:07 Seg Neutrophils % 52.4 % (40.0-70.0) 12/15/16 05:07 Seg Neutrophils # 1.8 K/mm3 (1.8-7.7) 12/15/16 05:07 Sodium 140 mmol/L (137-145) 12/15/16 05:07 Potassium 3.5 mmol/L (3.6-5.0) L 12/15/16 05:07 Chloride 111.9 mmol/L (98-107) H 12/15/16 05:07 Carbon Dioxide 19 mmol/L (22-30) L 12/15/16 05:07 Anion Gap 13 mmol/L 12/15/16 05:07 BUN 3 mg/dL (7-17) L 12/15/16 05:07 Creatinine 0.7 mg/dL (0.7-1.2) 12/15/16 05:07 Estimated GFR > 60 ml/min 12/15/16 05:07 BUN/Creatinine Ratio 4.28 % 12/15/16 05:07 Glucose 85 mg/dL (65-100) 12/15/16 05:07 Lactic Acid 1.20 mmol/L (0.7-2.0) 12/15/16 13:45 Calcium 8.2 mg/dL (8.4-10.2) L 12/15/16 05:07 Magnesium 2.00 mg/dL (1.7-2.3) 12/10/16 21:44 Total Creatine Kinase 52 units/L (30-135) 12/10/16 21:44 CK-MB (CK-2) < 1.0 ng/mL (0.0-4.0) 12/10/16 21:44 CK-MB (CK-2) Rel Index 1.9 (0-4) 12/10/16 21:44 Troponin T < 0.010 ng/mL (0.00-0.029) 12/10/16 21:44 TSH 3.890 mlU/mL (0.270-4.200) 12/10/16 21:44 Free T4 0.93 ng/dL (0.76-1.46) 12/10/16 21:44 Urine HCG, Qual Negative (Negative) 12/10/16 22:00 Urine Opiates Screen Presumptive negative 12/10/16 22:00 Urine Methadone Screen Presumptive negative 12/10/16 22:00 Ur Barbiturates Screen Presumptive negative 12/10/16 22:00 Ur Phencyclidine Scrn Presumptive negative 12/10/16 22:00 Ur Amphetamines Screen Presumptive negative 12/10/16 22:00 U Benzodiazepines Scrn Presumptive negative 12/10/16 22:00 Urine Cocaine Screen Presumptive negative 12/10/16 22:00 U Marijuana (THC) Screen Presumptive negative 12/10/16 22:00 Drugs of Abuse Note Disclamer 12/10/16 22:00
[2016-12-16] MEDS: ATIVAN IV PRN ×3 (09:14→17:02)
[2016-12-16] MEDS: TOPAMAX PO SCH ×2 (09:15→21:50)
[2016-12-16] MEDS: LaMICtal PO SCH ×2 (09:15→21:51)
[2016-12-16] MEDS: PROTONIX PO SCH ×2 (09:16→21:53)
[2016-12-16] MEDS: KEPPRA PO SCH ×3 (09:16→21:49)
[2016-12-16] MEDS: LOVENOX SUB-Q SCH (09:19)
[2016-12-16] MEDS: NEURONTIN PO SCH ×4 (11:20→21:53)
[2016-12-17] MEDS: ATIVAN IV PRN (06:45)
[2016-12-17] MEDS: NACL 0.9% 1000 ML 1,000 ML IV SCH (07:21)
[2016-12-17 08:28] VITALS: BP 104/59
[2016-12-17] MEDS: TYLENOL PO PRN ×2 (08:44→13:45)
[2016-12-17] MEDS ORDERED: ATIVAN IV ONE (08:53)
[2016-12-17] MEDS: LOVENOX SUB-Q SCH (09:14)
[2016-12-17] MEDS: LaMICtal PO SCH (09:15)
[2016-12-17] MEDS: NEURONTIN PO SCH ×2 (09:15→13:45)
[2016-12-17] MEDS: KEPPRA PO SCH (09:15)
[2016-12-17] MEDS: PROTONIX PO SCH (09:15)
[2016-12-17] MEDS: TOPAMAX PO SCH (09:16)
--- NOTE | 2016-12-17 10:38 | Progress Note ---
Assessment and Plan Assessment and plan: Status epilepticus Recurrent seizures - Patient is on Gabapentin, Keppra, lamictal and Ativan for breakthrough seizure - Had 1 episode of seizures this morning - Neurology consulted and EEG was done and read as normal Migraine - continue topiramate DVT prophylaxis - Lovenox Disposition - Patient transferred to [place] to epilepsy monitoring Unit and waiting for bed. - Patient Problems (1) Migraine Current Visit: Yes Status: Acute Qualifiers: Migraine type: M Status migrainosus presence: S Intractability: I (2) Uncontrolled seizures Current Visit: Yes Status: Acute Qualifiers: Convulsion type: C History Interval history: Patient was seen and evaluated morning, patient said she had 1 episode of seizure this morning. Patient was seen by neurologist recommended EEG read as normal and transferred to [place] epilepsy monitoring unit & waiting to get bed. Hospitalist Physical - Physical exam Narrative exam: Not in cardiopulmonary distress. The patient appeared well nourished and normally developed. Vital signs as documented. Head exam is unremarkable. No scleral icterus . Neck is without jugular venous distension, thyromegaly, or carotid bruits. Lungs are clear to auscultation. Cardiac exam reveals regular rate and Rhythm. First and second heart sounds normal. No murmurs, rubs or gallops. Abdominal exam reveals normal bowel sounds, no masses, no organomegaly and no aortic enlargement. Extremities are nonedematous and both femoral and pedal pulses are normal. 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 - Constitutional Vitals: Temp Pulse Resp BP Pulse Ox 98.0 F 81 20 104/59 100 12/17/16 07:00 12/17/16 07:00 12/17/16 07:00 12/17/16 07:00 12/17/16 07:00 Results - Labs CBC & Chem 7: 12/15/16 05:07 12/15/16 05:07 Labs: Laboratory Last Values WBC 3.4 K/mm3 (4.5-11.0) L 12/15/16 05:07 RBC 3.11 M/mm3 (3.65-5.03) L 12/15/16 05:07 Hgb 9.4 gm/dl (10.1-14.3) L 12/15/16 05:07 Hct 28.2 % (30.3-42.9) L 12/15/16 05:07 MCV 91 fl (79-97) 12/15/16 05:07 MCH 30 pg (28-32) 12/15/16 05:07 MCHC 33 % (30-34) 12/15/16 05:07 RDW 13.5 % (13.2-15.2) 12/15/16 05:07 Plt Count 159 K/mm3 (140-440) 12/15/16 05:07 Lymph % (Auto) 36.3 % (13.4-35.0) H 12/15/16 05:07 [place] % (Auto) 8.8 % (0.0-7.3) H 12/15/16 05:07 Eos % (Auto) 2.2 % (0.0-4.3) 12/15/16 05:07 Baso % (Auto) 0.3 % (0.0-1.8) 12/15/16 05:07 Lymph # 1.2 K/mm3 (1.2-5.4) 12/15/16 05:07 [place] # 0.3 K/mm3 (0.0-0.8) 12/15/16 05:07 Eos # 0.1 K/mm3 (0.0-0.4) 12/15/16 05:07 Baso # 0.0 K/mm3 (0.0-0.1) 12/15/16 05:07 Seg Neutrophils % 52.4 % (40.0-70.0) 12/15/16 05:07 Seg Neutrophils # 1.8 K/mm3 (1.8-7.7) 12/15/16 05:07 Sodium 140 mmol/L (137-145) 12/15/16 05:07 Potassium 3.5 mmol/L (3.6-5.0) L 12/15/16 05:07 Chloride 111.9 mmol/L (98-107) H 12/15/16 05:07 Carbon Dioxide 19 mmol/L (22-30) L 12/15/16 05:07 Anion Gap 13 mmol/L 12/15/16 05:07 BUN 3 mg/dL (7-17) L 12/15/16 05:07 Creatinine 0.7 mg/dL (0.7-1.2) 12/15/16 05:07 Estimated GFR > 60 ml/min 12/15/16 05:07 BUN/Creatinine Ratio 4.28 % 12/15/16 05:07 Glucose 85 mg/dL (65-100) 12/15/16 05:07 Lactic Acid 1.20 mmol/L (0.7-2.0) 12/15/16 13:45 Calcium 8.2 mg/dL (8.4-10.2) L 12/15/16 05:07 Magnesium 2.00 mg/dL (1.7-2.3) 12/10/16 21:44 Total Creatine Kinase 52 units/L (30-135) 12/10/16 21:44 CK-MB (CK-2) < 1.0 ng/mL (0.0-4.0) 12/10/16 21:44 CK-MB (CK-2) Rel Index 1.9 (0-4) 12/10/16 21:44 Troponin T < 0.010 ng/mL (0.00-0.029) 12/10/16 21:44 TSH 3.890 mlU/mL (0.270-4.200) 12/10/16 21:44 Free T4 0.93 ng/dL (0.76-1.46) 12/10/16 21:44 Urine HCG, Qual Negative (Negative) 12/10/16 22:00 Urine Opiates Screen Presumptive negative 12/10/16 22:00 Urine Methadone Screen Presumptive negative 12/10/16 22:00 Ur Barbiturates Screen Presumptive negative 12/10/16 22:00 Ur Phencyclidine Scrn Presumptive negative 12/10/16 22:00 Ur Amphetamines Screen Presumptive negative 12/10/16 22:00 U Benzodiazepines Scrn Presumptive negative 12/10/16 22:00 Urine Cocaine Screen Presumptive negative 12/10/16 22:00 U Marijuana (THC) Screen Presumptive negative 12/10/16 22:00 Drugs of Abuse Note Disclamer 12/10/16 22:00
== END 2016-12-17 15:31 | disposition short-term general hospital (02) | DRG 101 ==
LOC: ED 21:02 → 3A 12-11 00:56
PROVIDERS: ADMIT Internal Medicine; ATTEND Internal Medicine
DX: G40.901 Epilepsy, unspecified, not intractable, with status epilepticus (principal); K21.9 Gastro-esophageal reflux disease without esophagitis; Z82.49 Family history of ischemic heart disease and other diseases of the circulatory system; Z88.8 Allergy status to other drugs, medicaments and biological substances; Z91.041 Radiographic dye allergy status
CPT/HCPCS: 36415; 80048; 80307; 81025; 82140; 82550; 82553; 83735; 84439; 84443; 84484; 85025; 93005; 93010; 94760; 95819; 96374; 96375; J1650; J1953; J2060; J7030

== ENCOUNTER 2018-09-11 23:01 | Emergency (ER) | payer MEDICAID, OTHER ==
[2018-09-11] MEDS ORDERED: KEPPRA 1,000 MG/NS 0.75% 100ML 1,000 MG/100 ML BAG IV ONE (23:12)
[2018-09-11 23:15] VITALS: BP 139/84
[2018-09-11] MEDS ORDERED: FIORICET PO ONE (23:16)
--- NOTE | 2018-09-11 23:18 | Emergency Department Report ---
HPI - General Time Seen by Provider: 09/11/18 23:05 - HPI HPI: Room 22 The patient is a 32-year-old female presenting with a chief complaint of seizures. The patient poorly had seizures at home and EMS was called. EMS states upon arrival patient was postictal in a car. While being transported to the ED the patient had a "seizure" which consisted of staring off and then snap ping of fingers on her left hand. EMS administered Versed 2.5 mg prior to arrival. Patient now complains of a headache. Patient states she's had a constant severe headache all day for her entire life. 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, cor triatriatum dextrum) - Family History Family history: no significant - Social History Smoking Status: Never Smoker Substance Use Type: None (denies illicit drug use) - Medications Home Medications: Home Medications Medication Instructions Recorded Confirmed Last Taken Type Gabapentin [Neurontin] 300 mg PO QID 03/17/16 03/17/16 Unknown History Loratadine [Claritin] 10 mg PO DAILY 03/17/16 03/17/16 Unknown History Nortriptyline HCl 25 mg PO HS 03/17/16 03/17/16 Unknown History Pantoprazole [Protonix TAB] 40 mg PO BID 03/17/16 03/17/16 Unknown History Cyclobenzaprine [Flexeril 10 MG 1 tab PO TID PRN #20 tablet 05/22/16 Unknown Rx TAB] HYDROcodone/APAP 5-325 [[place] 1 each PO Q6HR PRN #20 tablet 05/22/16 Unknown Rx 5-325 mg TAB] lamoTRIgine [LaMICtal] 200 mg PO BID tablet 12/15/16 Unknown Rx levETIRAcetam [Keppra TAB] 1,000 mg PO BID tablet 12/15/16 Unknown Rx Butalb/Acetamin/Caff 50-325-40 1 tab PO Q8HR PRN #20 tablet 09/12/18 Unknown Rx [Fioricet] ED Review of Systems ROS: Stated complaint: SEIZURES Other details as noted in HPI Constitutional: no symptoms reported Eyes: denies: eye pain Respiratory: no symptoms reported Cardiovascular: denies: chest pain Endocrine: no symptoms reported Gastrointestinal: denies: abdominal pain Genitourinary: denies: dysuria Musculoskeletal: denies: back pain Neurological: headache Physical Exam - Physical Exam Physical Exam: GENERAL: The patient is well-developed well-nourished female lying on stretcher not appearing to be in acute distress. [] HEENT: Normocephalic. Atraumatic. Extraocular motions are intact. Patient has moist mucous membranes. NECK: Supple. No meningitic signs are noted. There is no adenopathy noted. CHEST/LUNGS: Clear to auscultation. There is no respiratory distress noted. HEART/CARDIOVASCULAR: Regular. There is no tachycardia. There is no gallop rub or murmur. ABDOMEN: Abdomen is soft, nontender. Patient has normal bowel sounds. There is no abdominal distention. SKIN: There is no rash. There is no edema. There is no diaphoresis. NEURO: The patient is awake, alert, and oriented. The patient is cooperative. The patient has no focal neurologic deficits. The patient has normal speech. Cranial nerves II through XII grossly intact, no drift MUSCULOSKELETAL: There is no evidence of acute injury. ED Medical Decision Making - Lab Data Result diagrams: 09/12/18 01:33 09/11/18 23:20 Laboratory Tests 09/11/18 09/11/18 09/11/18 23:20 23:20 23:20 WBC TNR RBC TNR Hgb TNR Hct TNR MCV TNR MCH TNR MCHC TNR RDW TNR Plt Count TNR Lymph % (Auto) TNR [place] % (Auto) TNR Eos % (Auto) TNR Baso % (Auto) TNR Lymph # TNR [place] # TNR Eos # TNR Baso # TNR Add Manual Diff TNR Seg Neutrophils % TNR Seg Neutrophils # TNR Sodium 139 Potassium 3.9 Chloride 105.5 Carbon Dioxide 22 Anion Gap 15 BUN 11 Creatinine 0.9 Estimated GFR > 60 BUN/Creatinine Ratio 12 Glucose 115 H Calcium 8.7 Magnesium 1.90 HCG, Qual Negative 09/12/18 01:33 WBC 5.7 RBC 3.47 L Hgb 10.0 L Hct 30.0 L MCV 87 MCH 29 MCHC 34 RDW 15.3 H Plt Count 216 Lymph % (Auto) 39.2 H [place] % (Auto) 6.9 Eos % (Auto) 1.6 Baso % (Auto) 0.4 Lymph # 2.2 [place] # 0.4 Eos # 0.1 Baso # 0.0 Add Manual Diff Seg Neutrophils % 51.9 Seg Neutrophils # 2.9 Sodium Potassium Chloride Carbon Dioxide Anion Gap BUN Creatinine Estimated GFR BUN/Creatinine Ratio Glucose Calcium Magnesium HCG, Qual - Radiology Data Radiology results: report reviewed (CT head), image reviewed (CT head) [place] [address] Cat Scan Report Signed Patient: RICKY SALAS MR#: [id number] : 1985 Acct:[id number] Age/Sex: 32 / F ADM Date: 09/11/18 Loc: ED Attending Dr: Ordering Physician: NIKO PEREZ MD Date of Service: 09/12/18 Procedure(s): CT head/brain wo con Accession Number(s): [id number] cc: NIKO PEREZ MD PROCEDURE: CT HEAD/BRAIN WO CON TECHNIQUE: Routine axial imaging was obtained of the brain without IV contrast. HISTORY: headache, seizure COMPARISONS: None FINDINGS: There is no evidence of acute stroke or hemorrhage. The ventricular system is appropriate in size and symmetric. The basal cisterns appear normal. The mastoid air cells are well pneumatized. The sinuses reveal patchy mucosal thickening in the ethmoidal and sphenoid sinuses. The calvarium appears intact. IMPRESSION: No acute intracranial process. Mild sinusitis as described.. This document is electronically signed by Latoya Alvarez MD., September 12 2018 01:17:04 AM ET Transcribed By: TANIA Dictated By: LATOYA ALVAREZ MD Electronically Authenticated By: LATOYA ALVAREZ MD Signed Date/Time: 09/12/18117 DD/ TD/TT: 09/12/18113 - Differential Diagnosis seizures, pseudoseizures Critical care attestation.: If time is entered above; I have spent that time in minutes in the direct care of this critically ill patient, excluding procedure time. ED Disposition Clinical Impression: Headache Disposition: DC-01 TO HOME OR SELFCARE Is pt being admited?: No Does the pt Need Aspirin: No Condition: Stable Instructions: Acute Headache (ED) Additional Instructions: Return to the emergency department immediately should you develop worsening sym ptoms, fever, inability to tolerate food or liquid or any other concerns. Prescriptions: Butalb/Acetamin/Caff 50-325-40 [Fioricet] 1 tab PO Q8HR PRN #20 tablet PRN Reason: Headache Referrals: MELISSA HUTCHINSON MD [Staff Physician] - 3-5 Days Time of Disposition: 01:53
[2018-09-11] MEDS ORDERED: AMMONIA INHALANT IH ONE (23:30)
[2018-09-12 00:16] LABS: BUN/Creatinine Ratio 12; Blood Urea Nitrogen 11 mg/dL (7-17); Calcium 8.7 mg/dL (8.4-10.2); Hemolysis Index 19
[2018-09-12 00:17] LABS: Hematocrit TNR % (30.3-42.9); Hemoglobin TNR gm/dl (10.1-14.3); Mean Corpuscular Volume TNR fl (79-97); Red Blood Count TNR M/mm3 (3.65-5.03)
[2018-09-12 00:18] LABS: Mean Corpuscular HGB Conc TNR % (30-34); Mean Platelet Volume TNR fl (6-12); Platelet Count TNR K/mm3 (140-440); Red Cell Distribution Width TNR % (13.2-15.2)
[2018-09-12 00:24] LABS: Basophils # (Auto) TNR K/mm3 (0.0-0.1); Basophils % (Auto) TNR % (0.0-1.8); Eosinophils # (Auto) TNR K/mm3 (0.0-0.4); Eosinophils % (Auto) TNR % (0.0-4.3); Lymphocytes # (Auto) TNR K/mm3 (1.2-5.4); Lymphocytes % (Auto) TNR % (13.4-35.0); Monocytes # (Auto) TNR K/mm3 (0.0-0.8); Monocytes % (Auto) TNR % (0.0-7.3)
--- NOTE | 2018-09-12 01:18 | Cat Scan Report ---
PROCEDURE: CT HEAD/BRAIN WO CON TECHNIQUE: Routine axial imaging was obtained of the brain without IV contrast. HISTORY: headache, seizure COMPARISONS: None FINDINGS: There is no evidence of acute stroke or hemorrhage. The ventricular system is appropriate in size and symmetric. The basal cisterns appear normal. The mastoid air cells are well pneumatized. The sinuses reveal patchy mucosal thickening in the ethmoidal and sphenoid sinuses. The calvarium appears intact . IMPRESSION: No acute intracranial process. Mild sinusitis as described.. This document is electronically signed by Nahun Alvarez MD., September 12 2018 01:17:04 AM ET
[2018-09-12 01:49] LABS: Basophils % (Auto) 0.4 % (0.0-1.8); Eosinophils # (Auto) 0.1 K/mm3 (0.0-0.4); Eosinophils % (Auto) 1.6 % (0.0-4.3); Lymphocytes # (Auto) 2.2 K/mm3 (1.2-5.4); Lymphocytes % (Auto) 39.2 % (13.4-35.0); Mean Corpuscular HGB Conc 34 % (30-34); Mean Corpuscular Volume 87 fl (79-97); Monocytes # (Auto) 0.4 K/mm3 (0.0-0.8); Monocytes % (Auto) 6.9 % (0.0-7.3); Platelet Count 216 K/mm3 (140-440); Red Blood Count 3.47 M/mm3 (3.65-5.03); Red Cell Distribution Width 15.3 % (13.2-15.2)
== END 2018-09-12 03:18 | disposition home or self-care (01) ==
LOC: ED 23:01
DX: G40.909 Epilepsy, unspecified, not intractable, without status epilepticus (principal); G43.909 Migraine, unspecified, not intractable, without status migrainosus; K21.9 Gastro-esophageal reflux disease without esophagitis; Z88.8 Allergy status to other drugs, medicaments and biological substances; Z91.041 Radiographic dye allergy status
CPT/HCPCS: 36415; 70450; 80048; 83735; 84703; 85025; 94640; 96365; 99284; J1953